=== PATIENT | male | born 1955 | race Asian ===

== ENCOUNTER 2019-03-23 17:32 | Emergency (ER) | payer BC ==
--- OUTSIDE RECORDS SUMMARY | 2019-03-23 17:41 | XMS REPORT | Continuity of Care Document ---
:1955 External Reference #:[id number] Author Name Madeleine Laird Care Team Providers Name Role Phone Renard Schwab MD Care Team Information Daycare Assistant Unavailable Renard Schwab MD Primary Care Physician Unavailable Payers Date Identification Numbers Payment Provider Subscriber Policy Number: [id number] [facility] Jose Cox PayID: [id number] [address] [place] [address] Family History Date Family Member(s) Observation Comments General Diabetes General Heart Disease General Hypertension General Stroke General Cancer Social History Type Date Description Comments Sex Unknown 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 Unknown 81mg Tablets Vitamin D take 1 capsule by Unknown (Cholecalciferol) mouth two times daily in 1000Unit Tablets fall/winter, take 1 per day in spring/summer----anayeli henning appointment for refills [place]-3 CF 1 cap by mouth once Unknown 1000mg a day Capsules Ranitidine HCL 1 by mouth twice a Unknown 150mg day Capsules Vital Signs Date Vital Result Comment 03/16/2019 8:34am Height 66 inches 5'6" Weight 159.50 lb Heart Rate 77 /min BP Systolic Sitting 118 mmHg BP Diastolic Sitting 72 mmHg Respiratory Rate 15 /min BMI (Body Mass Index) 25.7 kg/m2 09/28/2016 2:22pm Height 66 inches 5'6" Weight 146.00 lb Respiratory Rate 16 /min Pain Level 0 BMI (Body Mass Index) 23.6 kg/m2 07/27/2016 2:11pm Height 66 inches 5'6" Weight 146.00 lb Heart Rate 73 /min BP Systolic 114 mmHg BP Diastolic 75 mmHg BMI (Body Mass Index) 23.6 kg/m2 Encounters Type Date Location Provider Dx Diagnosis Office Visit 07/06/2018 [facility] Dermatology Raghu Dean MD L82.1 Other seborrheic 3:20p keratosis D18.01 Hemangioma of skin and subcutaneous tissue Office Visit 09/28/2016 2:15p [facility] Graciela Bush.[facility] left shoulder Office Visit 07/27/2016 2:00p [facility] Graciela Bush.52 [facility] Plan of Treatment Future Appointment(s):04/14/2019 11:30 am - Jose G Jefferson MD at [id number]/2019 - Jose G Jefferson, MDR94.02 Abnormal brain scanNew Xrays:MRI Brain W/O, Ordered: 03/16/19Comments:No symptoms from his syncope. The main issue is whether he had a small lacunar infarct at some point that is asymptomatic- the other possibility is that the hypodensity on ct may represent dilated Virchow Kaden spaces- a harmless condition. An mri scan may help sort this out and will see if there are other areas of hardening of the arteries as well. If it looks like he has had a stroke will check fasting lipid profile and may need adjustment of his statin and will check carotid doppler. He will check with his about his snoring and if he has respiratory pauses or snores very loudly he will call and let me know.Discussed issues of emergency treatment of stroke.Follow up:if mri is normal - my office will call if abnormal will get further testing and will see afterwards.
--- NOTE | 2019-03-23 18:07 | UC ---
Dizzy HPI HPI Summary: 63 yo man who presents about 10 hours after an episode this morning of lightheadeness associated with a sense of having slurred speech. Was exercising in the gym, doing weights, hot environment, when he began to feel unwell. Had shortness of breath without chest pain. BP was 99/61. His certified personal trainer did not observe him speaking, he had a sense of slurring that lasted several minutes. No change in vision, headache, weakness. After a brief rest, he returned home, participated in a phone conference, felt fine. Comes tonight at his 's urging. Had a fall in [facility] in November; CT scan done to ensure no subdural. Noted possible lacunar infarcts. He is scheduled for an MRI tomorow morning at 7:30 am to asseess this. Hx of elevated cholesterol, taking statin and ASA for at least 8 yrs. No hx of htn, former smoker. FH of HTN and stroke in his father. No history of headaches or ataxia. Thought that we might be able to advance his MRI of the brain. - History Of Current Complaint Chief Complaint: UCDizziness Stated Complaint: FUZZY FEELING Time Seen by Provider: 03/23/19 17:50 Hx Obtained From: Patient Onset/Duration: Sudden Onset, Lasting Minutes - no more than 5 Timing: Intermittent Episode Lasting - few minutes, one episode only. Severity Initially: Mild Severity Currently: None Pain Intensity: 0 Character: Lightheaded - "fuzzy" Aggravating Factor(s): Nothing Alleviating Factor(s): Lying Down Associated Signs And Symptoms: Positive: SOB - Risk Factors Cardiac Risk Factors: Elevated Lipids CVA Risk Factor: Hyperlipidemia - Allergies/Home Medications Allergies/Adverse Reactions: Allergies Allergy/AdvReac Type Severity Reaction Status Date / Time BIVALVE SEAFOOD Allergy Severe GI Upset Uncoded 03/23/19 17:37 Home Medications: Home Medications Ranitidine TAB (NF) [Zantac TAB (NF)] 150 mg PO DAILY 03/23/19 [History Confirmed 03/23/19] PMH/Surg Hx/FS Hx/Imm Hx Previously Healthy: Yes Cardiovascular History: Other - hypercholesterolemia - Surgical History Surgical History: None - Family History Known Family History: Positive: Hypertension - both parents, Diabetes - mother, Other - father had stroke in his 60's - Social History Occupation: Employed Full-time Lives: With Family Alcohol Use: Daily Alcohol Amount: 1 glass wine Substance Use Type: None Smoking Status (MU): Former Smoker Have You Smoked in the Last Year: No When Did the Patient Quit Smoking/Using Tobacco: 10 yrs ago Review of Systems All Other Systems Reviewed And Are Negative: Yes Constitutional: Positive: Negative Skin: Positive: Negative Eyes: Negative: Blurred Vision, Diplopia ENT: Positive: Negative Respiratory: Positive: Negative Cardiovascular: Positive: Negative Gastrointestinal: Positive: Negative Genitourinary: Positive: Negative Motor: Positive: Negative Neurovascular: Positive: Negative Musculoskeletal: Positive: Negative Neurological: Negative: Headache Psychological: Positive: Negative Is Patient Immunocompromised?: No Physical Exam Triage Information Reviewed: Yes Appearance: Well-Appearing, No Pain Distress, Other: - Alert, oriented, conversant. Vital Signs: Initial Vital Signs Temp 98.4 F 03/23/19 17:39 Pulse 74 03/23/19 17:39 Resp 18 03/23/19 17:39 BP 135/96 03/23/19 17:39 Pulse Ox 98 03/23/19 17:39 Eye Exam: Other - mild proptosis, normal fundi Eyes: Positive: Conjunctiva Clear ENT: Positive: Normal ENT inspection, Pharynx normal Dental Exam: Normal Neck: Positive: Supple, Nontender, No Lymphadenopathy Respiratory: Positive: Lungs clear, Normal breath sounds Cardiovascular: Positive: RRR, No Murmur Abdomen Description: Positive: Nontender, No Organomegaly Musculoskeletal Exam: Normal Neurological Exam: Other - CNII-XII normal, normal tracking. No pronator drift. No past pointing, normal finger to nose. Neg Romberg, normal gait, normal heel to toe walking. Neurological: Positive: Muscle Tone Normal Psychological Exam: Normal Skin Exam: Normal Diagnostics - EKG Cardiac Rate: NL Cardiac Rhythm: Sinus: Normal Ectopy: None ST Segment: Normal Dizzy Course/Dx - Course Course Of Treatment: Discussed transfer to ER for evaluation of possible TIA but declined. Given that he is scheduled for MRI in the morning, and event was hours ago without repeat, will attend MRI tomorrow morning at 7:30 am as arranged. Follow up with Dr. Jefefrson, will follow up blood pressure as well - Differential Dx/Diagnosis Differential Diagnosis/HQI/PQRI: CVA, Dysrhythmia, Transient Ischemic Attack, Vasovagal Reaction Provider Diagnosis: Vasovagal reaction Discharge - Sign-Out/Discharge Documenting (check all that apply): Patient Departure All imaging exams completed and their final reports reviewed: No Studies - Discharge Plan Condition: Good Disposition: HOME Patient Education Materials: Near Syncope (ED) Referrals: Renard Schwab MD [Primary Care Provider] - Additional Instructions: The exact reason for this morning's event is not clear, but most consistent with a vasovagal response to overheating and fatigue of exercising. MRI is scheduled for tomorrow morning. If you experience any similar episodes, you will proceed straight to the emergency room. Ensure follow up with Dr. Jefferson and ensure a repeat blood pressure with Dr. Schwab within 2 weeks. - Billing Disposition and Condition Condition: GOOD Disposition: Home
[2019-03-23 18:40] VITALS: BP 144/84
== END 2019-03-23 18:57 | disposition home or self-care (01) ==
LOC: UCEAST 17:32
DX: R55 Syncope and collapse (principal); Z91.013 Allergy to seafood; Z87.891 Personal history of nicotine dependence
CPT/HCPCS: 99201; G0463